=== PATIENT | male | born 2000 | race Caucasian/White ===

== ENCOUNTER 2023-04-17 17:02 | Emergency (ER) | payer OTHER ==
[2023-04-17 20:55] LABS: SARS-CoV-2 NAA Rapid Test Not Detected (NotDetected)
[2023-04-17] MEDS ORDERED: Dexamethasone 4 MG TAB ONE (21:06)
== END 2023-04-17 21:10 | disposition home or self-care (01) ==
LOC: CSHERS 17:02
DX: B97.4 Respiratory syncytial virus as the cause of diseases classified elsewhere (principal); F17.220 Nicotine dependence, chewing tobacco, uncomplicated; Z20.822 Contact with and (suspected) exposure to COVID-19
CPT/HCPCS: 87081; 87430; 99283; J8540

== ENCOUNTER 2023-04-26 04:23 | Emergency (ER) | payer OTHER ==
[2023-04-26] MEDS ORDERED: Ondansetron ODT 4 MG TAB ONE (04:58)
[2023-04-26] MEDS ORDERED: Ibuprofen 200 MG TAB ONE (04:58)
[2023-04-26 05:42] LABS: SARS-CoV-2 NAA Rapid Test Not Detected (NotDetected)
== END 2023-04-26 05:44 | disposition home or self-care (01) ==
LOC: CSHERS 04:23
DX: J10.1 Influenza due to other identified influenza virus with other respiratory manifestations (principal); F17.220 Nicotine dependence, chewing tobacco, uncomplicated; Z20.822 Contact with and (suspected) exposure to COVID-19
CPT/HCPCS: 99283; Q0162